=== PATIENT | female | born 1955 | race Caucasian/White ===

== ENCOUNTER 2017-06-16 07:38 | Day surgery (SDC) | payer BC ==
[~2017-06-16 07:38] MED LIST: NORMAL SALINE 3 ML BOX IV PRN; RINGER'S SOLUTION,LACTATED 1,000 ML IV PRN; ceFAZolin SODIUM 1 GM in DEXTROSE 5 % IN WATER 100 ML IV PRN
[2017-06-16] MEDS ORDERED: RINGER'S SOLUTION,LACTATED 1,000 ML IV ONE ×3 (08:15→12:25)
[2017-06-16] MEDS ORDERED: LIDOCAINE HCL/EPINEPHRINE 50 ML VIAL IJ ONE (09:35)
--- NOTE | 2017-06-16 12:42 | OR ---
Operative Report - Dictated Report Narrative: DATE OF PROCEDURE: 06/16/2017 INDICATION: 61-year-old with symptomatic post hysterectomy vaginal vault prolapse involving the anterior, posterior and apical portions of the vagina. PREOPERATIVE DIAGNOSIS: Symptomatic cystocele, rectocele, and apical vaginal vault prolapse POSTOPERATIVE DIAGNOSIS: Same PROCEDURE: Anterior and posterior colpoperineorrhaphy, Right uterosacral ligament fixation, Left sacral spinous ligament fixation, Cystoscopy SURGEON: Wong Sandoval D.O. [employer] OPERATOR: OR staff ANESTHESIA: Gen. ESTIMATED BLOOD LOSS: 250 mL URINE OUTPUT: 300 mL FLUID REPLACEMENT: 1400 mL FINDINGS: Apical vault prolapse 3 cm from the hymenal ring, anterior vaginal prolapse to the hymenal ring, posterior vaginal prolapse 2 cm from the hymenal ring. Rectovaginal fascia was torn from its left and proximal attachments, weak perineal body, significant varicosities in the vaginal mucosa, right uterosacral ligament with secure origin and attenuated length, weak and obliterated left uterosacral ligament. SPECIMEN(S): None TECHNIQUE: The patient was taken to the operating room and placed in dorsal lithotomy position after adequate general anesthesia and sterile prep were performed. 1 g of Ancef was given preoperatively. A [place] retractor was placed over the perineum. The vaginal mucosa was grasped at the introitus at the 4 and 8 o'clock positions and a simin-shaped resection of peritoneal and vaginal mucosa was removed. The vaginal mucosal was dissected from the underlying rectovaginal fascia to the vaginal apex and laterally to the levator ani lateral border on either side. The right uterosacral ligament was identified and noted to be securely attached at it's proximal origin. An 0 Vicryl suture was placed through the proximal end of the right uterosacral ligament at the level of the ischial spine. Either end of the suture was brought through the vaginal apex, tagged, and held for later use. The left sacral spinous ligament was identified and suture was placed through the ligament 1 cm distal to the ischial spine. The ends of the suture were then brought through the apex of the vaginal mucosa, tagged, and held for later use. The rectovaginal fascia was sutured to its proximal and left lateral wall attachments using 0 Vicryl, then plicated in the midline with a running 0 Vicryl suture. Using the same suture, the perineal body was reapproximated. Excess vaginal mucosa was excised and closed with 3-0 Vicryl Rapide. A Coronado catheter was inserted to drain the bladder and to determine the level of the urethrovesical junction. The vaginal mucosa was grasped at the UV junction and at the vaginal apex. Scalpel was used to make a linear incision through the vaginal mucosa of the bladder. Using sharp and blunt dissection, the vaginal mucosa was dissected laterally from the underlying bladder. Using an 0 Vicryl suture, the bladder was plicated in midline with a running stitch. A second imbricating stitch was placed over the previous one from the UV junction to the vaginal apex. Excess vaginal mucosa was excised and the vaginal mucosa was closed with a running 3-0 Vicryl Rapide. The right uterosacral ligament and left sacral spinous ligament fixation sutures were were tied, bringing the vaginal apex up to the level of the ischial spine. The bladder was drained and the Coronado catheter was removed. Cystoscopy was performed, noting urine spurting freely from both ureteral orifices. Sponge, lap, instrument, and needle count correct x 2. DISPOSITION: The patient was transferred to postanesthesia care unit in good condition.
[2017-06-16] MEDS ORDERED: oxyCODONE HCL/ACETAMINOPHEN 1 TAB TABLET PO PRN (13:00)
[2017-06-16] MEDS ORDERED: MORPHINE SULFATE 2 MG/ML DISP.SYRIN IV PRN (13:00)
[2017-06-16] MEDS ORDERED: IBUPROFEN 800 MG TABLET PO PRN (13:01)
[2017-06-16 14:44] VITALS: BP 112/58
== END 2017-06-16 07:39 | disposition home or self-care (01) ==
LOC: AMB 07:38
PROVIDERS: ATTEND Obstetrics & Gynecology
PROC: 0WQNXZZ Repair Female Perineum, External Approach (ICD-10-PCS; 2017-06-16)
PROC: 0JQC0ZZ Repair Pelvic Region Subcutaneous Tissue and Fascia, Open Approach (ICD-10-PCS; principal; 2017-06-16 09:05)
DX: N99.3 Prolapse of vaginal vault after hysterectomy (principal); E78.5 Hyperlipidemia, unspecified; E03.9 Hypothyroidism, unspecified; Z87.891 Personal history of nicotine dependence; Z68.27 Body mass index [BMI] 27.0-27.9, adult